=== PATIENT | female | born 1970 | race Caucasian/White ===

== ENCOUNTER 2020-09-02 01:46 | Emergency (ER) | payer BC, OTHER ==
--- OUTSIDE RECORDS SUMMARY | 2020-09-02 01:49 | XMS REPORT | Continuity of Care Document ---
:1970 Author Organization [facility] t Address [address] [place] [address] Care Team Providers Name Role Phone Unavailable Unavailable Unavailable Payers Payer Name Policy Type Policy Number Effective Date Expiration Date S ource Problems This patient has no known problems. Allergies, Adverse Reactions, Alerts This patient has no known allergies or adverse reactions. Medications This patient has no known medications. Procedures This patient has no known procedures. Results This patient has no known results.
[2020-09-02 02:38] LABS: Basophils % 0.5 % (0-1.3); MPV 9.3 fL (7.6-11.3)
[2020-09-02 02:41] LABS: Absolute Lymphocytes (CBC) 1.6 K/uL (0.7-4.9); Hematocrit 39.8 % (36.0-45.0); Lymphocytes % 25.9 % (15.3-44.8); RBC Red Blood Cell Count 4.49 M/uL (3.86-4.86)
[2020-09-02 02:46] LABS: ALT/SGPT 15 U/L (12-78); AST/SGOT 7 U/L (15-37); Albumin 3.4 g/dL (3.4-5.0); Alkaline Phosphatase 54 U/L (45-117); BUN Blood Urea Nitrogen 21 mg/dL (7-18); Bicarbonate 26 mmol/L (21-32); Bilirubin Direct < 0.1 mg/dL (0-0.2); Bilirubin Total 0.1 mg/dL (0.2-1.0); Glucose Level 105 mg/dL (74-106); Lipase 143 U/L (73-393); Potassium 3.4 mmol/L (3.5-5.1); Protein, Total 6.9 g/dL (6.4-8.2); Sodium Level 143 mmol/L (136-145)
[2020-09-02 03:23] LABS: Urine Blood 3+ (NEG); Urine Glucose NEGATIVE (NEG); Urine Protein NEGATIVE (NEG); Urine Specific Gravity >1.030 (1.005-1.030); Urine pH 6.5 (5.0-7.0)
[2020-09-02 03:39] LABS: Urine Bacteria 20-50 /HPF (<20); Urine RBC <5 /HPF (NONE SEEN)
--- NOTE | 2020-09-02 04:12 | EDPHYS ---
Physician Documentation [facility] Name: Marina Funes Age: 50 yrs Sex: Female : 1970 Arrival Date: 09/02/2020 Time: 01:49 Bed 18 Private MD: ED Physician Darnell Hahn HPI: 09/02 04:10 This 50 yrs old Female presents to ER via Ambulatory with complaints of ma2 Abdominal Pain. 04:10 The patient presents with abdominal pain. Onset: The symptoms/episode began/occurred ma2 gradually, 1 day(s) ago. Associated signs and symptoms: Pertinent positives: nausea, Pertinent negatives: blood in stools, diarrhea, fever, headache. Severity of pain: At its worst the pain was moderate in the emergency department the pain has resolved. The patient has not experienced similar symptoms in the past. Historical: - Allergies: 02:17 Demerol; dm5 - Home Meds: 02:17 metoprolol tartrate 25 mg Oral tab 1 tab once daily [Active]; dm5 - PMHx: 02:17 Hypertension; dm5 - PSHx: 02:17 Lumpectomy; dm5 - Immunization history:: Adult Immunizations up to date. - Social history:: Smoking status: Patient denies any tobacco usage or history of. - Family history:: not pertinent. ROS: 04:10 Constitutional: Negative for fever, chills, and weight loss. ma2 04:10 All other systems are negative. Exam: 04:10 Constitutional: This is a well developed, well nourished patient who is awake, alert, ma2 and in no acute distress. ENT: Nares patent. No nasal discharge, no septal abnormalities noted. Tympanic membranes are normal and external auditory canals are clear. Oropharynx with no redness, swelling, or masses, exudates, or evidence of obstruction, uvula midline. Mucous membranes moist. Neck: Trachea midline, no thyromegaly or masses palpated, and no cervical lymphadenopathy. Supple, full range of motion without nuchal rigidity, or vertebral point tenderness. No Meningismus. Chest/axilla: Normal chest wall appearance and motion. Nontender with no deformity. No lesions are appreciated. Cardiovascular: Regular rate and rhythm with a normal S1 and S2. No gallops, murmurs, or rubs. Normal PMI, no JVD. No pulse deficits. Respiratory: Lungs have equal breath sounds bilaterally, clear to auscultation and percussion. No rales, rhonchi or wheezes noted. No increased work of breathing, no retractions or nasal flaring. Abdomen/GI: Soft, non-tender, with normal bowel sounds. No distension or tympany. No guarding or rebound. No evidence of tenderness throughout. MS/ Extremity: Pulses equal, no cyanosis. Neurovascular intact. Full, normal range of motion. Neuro: Awake and alert, GCS 15, oriented to person, place, time, and situation. Cranial nerves II-XII grossly intact. Motor strength 5/5 in all extremities. Sensory grossly intact. Cerebellar exam normal. Normal gait. Vital Signs: 01:59 BP 146 / 72; Pulse 83; Resp 22; Temp 98.4(O); Pulse Ox 99% on R/A; Weight 80.74 kg; dm5 Height 5 ft. 5 in. (165.10 cm); Pain 8/10; 03:30 BP 133 / 86; Pulse 81; Resp 18; Pulse Ox 100% ; jb4 01:59 Body Mass Index 29.62 (80.74 kg, 165.10 cm) dm5 MDM: 01:55 Patient medically screened. me2 04:10 Differential diagnosis: Cholelithiasis, gastritis, gastroesophageal reflux disease, ma2 Irritable bowel syndrome. Data reviewed: vital signs, nurses notes. Counseling: I had a detailed discussion with the patient and/or guardian regarding: the historical points, exam findings, and any diagnostic results supporting the discharge/admit diagnosis, the presence of at least one elevated blood pressure reading (>120/80) during this emergency department visit, the need for outpatient follow up. Response to treatment: the patient's symptoms have markedly improved after treatment. 09/02 01:56 Order name: Basic Metabolic Panel [facility] 09/02 01:56 Order name: CBC with Diff [facility] 09/02 01:56 Order name: Hepatic Function [facility] 09/02 01:56 Order name: Lipase [facility] 09/02 01:56 Order name: Basic Metabolic Panel; Complete Time: 03:23 [facility] 09/02 01:56 Order name: CBC with Automated Diff; Complete Time: 03:23 [facility] 09/02 01:56 Order name: IV Saline Lock; Complete Time: 02:27 [facility] 09/02 01:56 Order name: Liver (Hepatic) Function; Complete Time: 03:23 [facility] 09/02 01:56 Order name: Lipase; Complete Time: 03:23 [facility] 09/02 02:27 Order name: CT Abd/Pelvis - IV Contrast Only [facility] 09/02 03:06 Order name: Urine Microscopic Only; Complete Time: 03:51 tt3 09/02 03:07 Order name: Urine --Ancillary (enter results); Complete Time: 03:51 tt3 09/02 03:07 Order name: Urine Dipstick--Ancillary (enter results); Complete Time: 03:51 tt3 09/02 03:40 Order name: Urine Culture [facility] 09/02 01:56 Order name: Labs collected and sent; Complete Time: 02:27 [facility] 09/02 01:56 Order name: Urine Dipstick-Ancillary (obtain specimen); Complete Time: 03:05 [facility] 09/02 03:06 Order name: Urine Test (obtain specimen); Complete Time: 03:06 tt3 Administered Medications: No medications were administered Disposition: 09/02/20 04:12 Discharged to Home. Impression: Epigastric pain. - Condition is Stable. - Discharge Instructions: Abdominal Pain, Adult, [id number]. - Prescriptions for Zofran 4 mg Oral Tablet - take 1 tablet by ORAL route every 12 hours As needed; 20 tablet. - Medication Reconciliation Form, Thank You Letter, Antibiotic Education, Prescription Opioid Use form. - Follow up: Private Physician; When: Tomorrow; Reason: Continuance of care. - Notes: You have 4 cm right ovarian cyst. Follow up with your pharmacovigilance scientist for pelvic ultrasound, please. Signatures: Dispatcher [facility] Lore Larson RN RN dm5 Yasmani Coello, SPECIAL TESTER-C SPECIAL TESTER-Cla1 Daryl White RN RN jb4 Darnell Hahn MD MD ma2 Hi Haley tt3 Corrections: (The following items were deleted from the chart) 04:28 04:12 09/02/2020 04:12 Discharged to Home. Impression: Epigastric pain. Condition is jb4 Stable. Prescriptions for Zofran 4 mg Oral Tablet - take 1 tablet by ORAL route every 12 hours As needed; 20 tablet, Pepcid 20 mg Oral Tablet - take 1 tablet by ORAL route once daily for 10 days; 10 tablet. and Forms are Medication Reconciliation Form, Thank You Letter, Antibiotic Education, Prescription Opioid Use. Follow up: Private Physician; When: Tomorrow; Reason: Continuance of care. ma2
--- NOTE | 2020-09-02 04:12 | ER ---
Nurse's Notes [facility] Name: Marina Funes Age: 50 yrs Sex: Female : 1970 Arrival Date: 09/02/2020 Time: 01:49 Bed 18 Private MD: Diagnosis: Epigastric pain Presentation: 09/02 01:59 Chief complaint: Patient states: upper abdominal pain that woke pt up from sleep at dm5 approximately 1230. Pt states that she dry heaved. Coronavirus screen: Client denies travel out of the [place] in the last 14 days. nausea, Client presents with at least one sign or symptom that may indicate coronavirus-19. Standard/surgical mask placed on the client. Ebola Screen: Patient negative for fever greater than or equal to 101.5 degrees Fahrenheit, and additional compatible Ebola Virus Disease symptoms Patient denies exposure to infectious person. Patient denies travel to an Ebola-affected area in the 21 days before illness onset. No symptoms or risks identified at this time. Initial Sepsis Screen: Does the patient meet any 2 criteria? No. Patient's initial sepsis screen is negative. Does the patient have a suspected source of infection? No. Patient's initial sepsis screen is negative. Risk Assessment: Do you want to hurt yourself or someone else? Patient reports no desire to harm self or others. Onset of symptoms was September 02, 2020. 01:59 Method Of Arrival: Ambulatory [facility] 01:59 Acuity: ZEFERINO 3 dm5 Triage Assessment: 02:17 General: Appears in no apparent distress. uncomfortable, Behavior is calm, cooperative. dm5 Pain: Complains of pain in right upper quadrant and left upper quadrant Pain currently is 8 out of 10 on a pain scale. Neuro: Level of Consciousness is awake, alert, obeys commands, Oriented to person, place, time, situation. Cardiovascular: No deficits noted. Respiratory: No deficits noted. Respiratory: Airway is patent Respiratory effort is even, unlabored, Respiratory pattern is regular, symmetrical. GI: Abdomen is non-distended, Reports upper abdominal pain, nausea. Derm: Skin is pink, warm \T\ dry. Historical: - Allergies: 02:17 Demerol; dm5 - Home Meds: 02:17 metoprolol tartrate 25 mg Oral tab 1 tab once daily [Active]; dm5 - PMHx: 02:17 Hypertension; dm5 - PSHx: 02:17 Lumpectomy; dm5 - Immunization history:: Adult Immunizations up to date. - Social history:: Smoking status: Patient denies any tobacco usage or history of. - Family history:: not pertinent. Screenin:00 Abuse screen: Denies threats or abuse. Nutritional screening: No deficits noted. jb4 Tuberculosis screening: No symptoms or risk factors identified. Fall Risk None identified. Assessment: 02:00 General: Appears in no apparent distress. uncomfortable, Behavior is calm, cooperative, jb4 appropriate for age. Pain: Complains of pain in abdomen Pain does not radiate. Pain currently is 5 out of 10 on a pain scale. Neuro: Level of Consciousness is awake, alert, obeys commands, Oriented to person, place, time, situation. Cardiovascular: Patient's skin is warm and dry. Respiratory: Airway is patent Respiratory effort is even, unlabored, Respiratory pattern is regular, symmetrical. GI: Abdomen is round non-distended, Bowel sounds present X 4 quads. Abd is soft X 4 quads Abdomen is tender to palpation X 4 quads. : No signs and/or symptoms were reported regarding the genitourinary system. EENT: No signs and/or symptoms were reported regarding the EENT system. Derm: Skin is intact, Skin is pink, warm \T\ dry. Musculoskeletal: Circulation, motion, and sensation intact. Range of motion: intact in all extremities. 03:30 Reassessment: Patient appears in no apparent distress at this time. Patient and/or jb4 family updated on plan of care and expected duration. Pain level reassessed. Patient is alert, oriented x 3, equal unlabored respirations, skin warm/dry/pink. 04:27 Reassessment: Patient appears in no apparent distress at this time. Patient and/or jb4 family updated on plan of care and expected duration. Pain level reassessed. Patient is alert, oriented x 3, equal unlabored respirations, skin warm/dry/pink. Vital Signs: 01:59 BP 146 / 72; Pulse 83; Resp 22; Temp 98.4(O); Pulse Ox 99% on R/A; Weight 80.74 kg; dm5 Height 5 ft. 5 in. (165.10 cm); Pain 8/10; 03:30 BP 133 / 86; Pulse 81; Resp 18; Pulse Ox 100% ; jb4 01:59 Body Mass Index 29.62 (80.74 kg, 165.10 cm) dm5 ED Course: 01:49 Patient arrived in ED. ag3 01:55 Darnell Hahn MD is Attending Physician. ma2 02:00 Patient has correct armband on for positive identification. Bed in low position. Call jb4 light in reach. Side rails up X 1. Pulse ox on. NIBP on. 02:06 Daryl White, RN is Primary Nurse. jb4 02:10 No provider procedures requiring assistance completed. Initial lab(s) drawn, by pa, faheem sent to lab. Inserted saline lock: 20 gauge in left antecubital area, using aseptic technique. Blood collected. 02:17 Triage completed. dm5 02:17 Arm band placed on Patient placed in an exam room, on a stretcher. dm5 03:28 CT Abd/Pelvis - IV Contrast Only In Process Unspecified. EDMS 04:27 IV discontinued, intact, bleeding controlled, No redness/swelling at site. Pressure jb4 dressing applied. Administered Medications: No medications were administered Outcome: 04:12 Discharge ordered by . ma2 04:27 Discharged to home ambulatory. jb4 04:27 Condition: stable 04:27 Discharge instructions given to patient, Instructed on discharge instructions, follow up and referral plans. medication usage, Demonstrated understanding of instructions, follow-up care, medications, Prescriptions given X 1. 04:28 Patient left the ED. jb4 Signatures: Dispatcher [employer] EDMS Lore Larson RN RN dm5 Bryson, James, Darnell Phillips RN, MD MD nm2 Lolly Moon 3 Corrections: (The following items were deleted from the chart) 03:43 02:00 GI: Abdomen is round non-distended, jb4 jb4
[2020-09-02 04:33] VITALS: TEMP 98.4
[2020-09-02 04:34] VITALS: BP 133/86; O2SAT 100
--- NOTE | 2020-09-02 17:44 | RAD REPORT ---
EXAM DESCRIPTION: CT - Abdomen Pelvis W Contrast - 09/02/2020 6:59 am CLINICAL HISTORY: ABD PAIN COMPARISON: None Available. TECHNIQUE: CT of the abdomen and pelvis performed following IV administration of iodinated contras t. Arterial and portal venous phase imaging provided. FINDINGS: Lung Bases: The visualized lung bases are clear. Bones: Mild degenerative endplate spondylosis. Degenerative disc height narrowing at L5/S1. Abdomen: Liver: The liver has normal size and density. No intrahepatic biliary dilatation. Gallbladder: No calcified gallstones. Spleen, Pancreas, and Adrenal Glands: The spleen, pancreas, and adrenal glands are unremarkable. Kidneys: No hydronephrosis or obstructing calculus. Punctate nonobstructing left nephrolithiasis. Vasculature: Aortoiliac atherosclerosis. IVC is unremarkable. The portal vein is patent. The proxim al visceral and renal arteries are patent. Stomach: Small hiatal hernia. Other: No free intraperitoneal air. Small amount of free fluid. Pelvis: Bladder: Urinary bladder is unremarkable. Bowel: No dilated loops of large or small bowel. Appendix: Normal appendix. Pelvis: Uterus is not enlarged. There is an indeterminate 3.4 x 4.4 x 3.0 cm right ovarian cyst. IMPRESSION: 1. There is a 4.4 cm indeterminate right ovarian cyst. Recommend prompt follow-up with jerome NGUYEN. Reference: J Am Sylvie Radiol 2013;10:675-681 2. Small amount of free fluid. This may be physiologic. 3. Punctate nonobstructing left nephrolithiasis. This exam was performed according to our departmental dose-optimization program, which includes autom ated exposure control, adjustment of the mA and/or kV according to patient size and/or use of iterati ve reconstruction technique. Electronically signed by: Abebe Sherwood 09/02/2020 3:51 AM EXPLOSIVE TECHNICIAN Due to temporary technical issues with the PACS/Fluency reporting system, reports are being signed by the in house radiologists without review as a courtesy to insure prompt reporting. The interpreting radiologist is fully responsible for the content of the report.
== END 2020-09-02 04:28 | disposition home or self-care (01) ==
LOC: ER 01:46
DX: R10.13 Epigastric pain (principal); I10 Essential (primary) hypertension; Z88.5 Allergy status to narcotic agent
CPT/HCPCS: 87088; 85025; 87086; 80048; 36415; 81025; 80076; 83690; 74177; Q9967; 81003; 81015; 99284